=== PATIENT | male | born 1955 | race Caucasian/White ===

== ENCOUNTER 2019-04-30 14:24 | Outpatient (REF) | payer MEDICARE, SELFPAY ==
[2019-05-02 10:19] LABS: PSA, Screening 1.4 ng/mL (0.0-4.5)
== END 2019-04-30 14:44 ==
LOC: NCHCN 14:24
PROVIDERS: PCP Internal Medicine; Visit Provider Family Medicine
DX: N40.0 Benign prostatic hyperplasia without lower urinary tract symptoms (principal); Z12.5 Encounter for screening for malignant neoplasm of prostate
CPT/HCPCS: 84153

== ENCOUNTER 2019-10-09 10:21 | Outpatient (REF) | payer MEDICARE, SELFPAY ==
[2019-10-09 15:35] LABS: Calculated LDL 98 mg/dL (<100); Cholesterol 192 mg/dL (<200); HDL Cholesterol 68 mg/dL (40-60); Triglyceride 134 mg/dL (<150)
[2019-10-09 15:41] LABS: Hemoglobin A1C 5.5 % (3.8-5.6)
== END 2019-10-09 10:41 ==
LOC: NCHCN 10:21
PROVIDERS: PCP Internal Medicine; Visit Provider Family Medicine
DX: E78.5 Hyperlipidemia, unspecified (principal); Z13.1 Encounter for screening for diabetes mellitus
CPT/HCPCS: 80061; 83036

== ENCOUNTER 2021-01-03 00:33 | Outpatient (CLI) | payer MEDICARE, SELFPAY ==
--- NOTE | 2021-01-03 14:00 | DI.RAD_ITS ---
Exam(s) XR KNEE LT 3V AP,LAT,GEO EXAM: XR KNEE LT 3V AP,LAT,GEO CLINICAL HISTORY: LT KNEE PAIN, M25.562. TECHNIQUE: 2D digital imaging was performed of the left knee. Four images were obtained. AP, later al and PA tunnel views were obtained. COMPARISON: CR LEFT KNEE 3 VIEW COMPLETE from 11/17/2011 CR LEFT KNEE 3 VIEW COMPLETE from 11/17/2011 CR STRESS VIEWS UNI OR BILAT from 07/16/2013 FINDINGS: BONES: No acute fracture is present. No bony destructive lesion is seen. There is an enthesophyte at the superior patella. JOINTS: Moderate narrowing is seen in the medial femoral tibial joint. Tricompartment periarticular spurring is present. No joint effusion is seen. SOFT TISSUE: Normal. IMPRESSION: Moderate degenerative changes of the left knee. DATA REPOSITORY: RADIATION DOSE DELIVERED:
== END 2021-01-03 00:53 ==
PROVIDERS: PCP Family Medicine; Visit Provider Family Medicine
DX: M25.562 Pain in left knee (principal); M17.12 Unilateral primary osteoarthritis, left knee
CPT/HCPCS: 73562

== ENCOUNTER 2021-01-21 19:46 | Outpatient (REF) | payer MEDICARE, SELFPAY ==
[2021-01-21 20:06] LABS: Bilirubin Negative (Negative); Blood Negative (Negative); Clarity Clear (Clear); Glucose Negative (Negative); Ketones Negative (Negative); Leukocyte Esterase Negative (Negative); Nitrite Negative (Negative); Urobilinogen 0.2 EU/dL (Up TO 0.2); pH 5.5 (5-8)
== END 2021-01-21 19:47 | disposition home or self-care (01) ==
LOC: NCHCN 19:46
PROVIDERS: PCP Family Medicine; Visit Provider Family Medicine
DX: R39.9 Unspecified symptoms and signs involving the genitourinary system (principal)
CPT/HCPCS: 81003; 87086

== ENCOUNTER → 2021-06-10 08:53 | Outpatient (BNVA) | payer MEDICARE, SELFPAY | PROVIDERS: PCP Family Medicine; Referring Provider Family Medicine; Visit Provider Surgery | DX: K40.90 Unilateral inguinal hernia, without obstruction or gangrene, not specified as recurrent (principal) | CPT/HCPCS: 99203 ==

== ENCOUNTER → 2021-06-21 09:07 | Outpatient (BNVA) | payer MEDICARE, SELFPAY | PROVIDERS: PCP Family Medicine; Referring Provider Family Medicine; Visit Provider Surgery | DX: K40.90 Unilateral inguinal hernia, without obstruction or gangrene, not specified as recurrent (principal) | CPT/HCPCS: 99213 ==

== ENCOUNTER 2021-06-25 11:29 | Outpatient (REF) | payer MEDICARE, SELFPAY ==
[2021-06-25 11:49] LABS: ALT 32 U/L (16-63); AST 29 U/L (15-37); Albumin 3.8 g/dL (3.4-5.0); Alkaline Phosphatase 87 U/L (46-116); Anion Gap 4.5 mmol/L (3-11); BUN 23 mg/dL (7-18); Bilirubin, Total 0.7 mg/dL (0.2-1.0); CO2 32.5 mmol/L (21.0-32.0); CREATININE 1.2 mg/dL (0.70-1.30); Calcium 8.8 mg/dL (8.5-10.1); Chloride 104 mmol/L (98-107); Glucose 77 mg/dL (74-106); Potassium 4.7 mmol/L (3.5-5.1); Sodium 141 mmol/L (136-145); Total Protein 6.8 g/dL (6.4-8.2)
== END 2021-06-25 11:30 | disposition home or self-care (01) ==
LOC: LBN 11:29
PROVIDERS: PCP Family Medicine; Visit Provider Physician Assistant Medical
DX: U07.1 COVID-19 (principal)
CPT/HCPCS: 80053

== ENCOUNTER 2021-10-17 11:54 | Outpatient (REF) | payer MEDICARE, SELFPAY ==
[2021-10-17 16:14] LABS: TSH (W/Ref FT4) 1.07 uIU/mL (0.36-3.74); Vitamin B12 706 pg/mL (193-986)
[2021-10-17 22:38] LABS: PSA, Screening 1.4 ng/mL (<=4.5)
== END 2021-10-17 11:55 | disposition home or self-care (01) ==
LOC: NCHCN 11:54
PROVIDERS: PCP Family Medicine; Visit Provider Family Medicine
DX: R41.3 Other amnesia (principal); Z00.00 Encounter for general adult medical examination without abnormal findings
CPT/HCPCS: 84153; 82607; 84443

== ENCOUNTER 2022-03-18 11:35 | Emergency (ER) | payer MEDICARE, SELFPAY ==
[2022-03-18 11:40] VITALS: BP 114/65; PULSE 56; RESP 16; TEMP 37; O2SAT 97
--- NOTE | 2022-03-18 12:45 | DI.RAD_ITS ---
Exam(s) XR KNEE RT 3V AP,LAT,GEO EXAM: XR KNEE RT 3V AP,LAT,GEO CLINICAL HISTORY: Injury, Pain. TECHNIQUE: 2D digital imaging was performed. COMPARISON: CR XR KNEE LT 3V AP,LAT,GEO from 01/03/2021 FINDINGS: 3 views There is soft tissue swelling anteriorly, anterior to the patella and patellar ligament. There is no patellar fracture nor osseous abnormality at the anterior tibial tubercle. Some vertically orientat ed calcification is seen in the distal quadriceps tendon just above the patella consistent with chron ic tendinitis of the quadriceps. There is no evidence of acute fracture in the knee nor obvious knee joint effusion. There are mild-m oderate osteoarthritic degenerative changes in the medial compartment and milder degenerative changes in the other compartments of the knee. No osseous lesions. Bone density is normal. IMPRESSION: Anterior soft tissue swelling. No acute fractures. Some degenerative changes as described above. No joint effusion. Calcification in the distal quadriceps tendon, consistent with chronic tendinitis/tendinosis. DATA REPOSITORY: RADIATION DOSE DELIVERED:
--- NOTE | 2022-03-18 12:48 | ED.GENADUL_ITS ---
Discharge Plan Disposition Patient Disposition: Home Condition: Stable Discharge Details Clinical Impression: Right knee sprain Primary Care Provider: Claudy Ramsey ED Provider: Morena Lofton Home Meds and New Rx's Prescriptions: Continued carlitos palmetto 450 MG capsule 450 mg PO DAILY Qty: 2 turmeric root extract 538 mg capsule 538 mg PO DAILY ibuprofen 200 MG capsule 800 mg PO PRN PRN gabapentin 300 MG capsule 600 mg PO HS Chelated Zinc 50 MG tablet 50 mg PO DAILY multivitamin 1 EACH capsule 1 ea PO DAILY omega-3 fatty acids-fish oil 1 EACH capsule 2 ea PO DAILY atorvastatin [Lipitor] 20 MG tablet 20 mg PO DAILY cholecalciferol (vitamin D3) 1,000 UNITS tablet 2,000 units PO DAILY Discharge Instructions Instructions: Knee Sprain (ED) Additional Instructions: At this time x-ray shows no evidence of fracture, fluid within the knee joint or dislocation. I do suspect a sprain. Please wear the hinged knee brace as instructed for comfort. Toe-touch weightbearing advance as tolerated. If increased pain and swelling after 1 to 2 weeks please follow-up with orthopedics. Please no strenuous activity such as skiing if still having symptoms due to increased risk of reinjury or worsening injury. Rest ice compression elevation, please take Tylenol or Ibuprofen with food every 4-6 hours as needed for pain and swelling. Referrals: Nash Rollins MD [ [facility] STAFF PHYSICIAN] - Return if symptoms worsen Claudy Ramsey [Primary Care Provider] - Return if symptoms worsen Discharge Data Discharge Date/Time-TO BE ENTERED AT DEPARTURE: 03/18/22 14:07 Medical Decision Making 67-year-old male past medical history of hyperlipidemia, osteoarthritis, restless leg syndrome presents to the ER after a twisting injury while playing tennis yesterday. XR ordered, Patient returned from imaging informed by DI that the inadvertently canceled with the x-ray x-ray reordered and they will merge the accounts. X-ray shows no significant fracture or dislocation. Some trace prepatellar swelling. Patient was just charged with sprain information and RICE care. He was given a hinged knee brace he presented with crutches. I instructed him to follow-up with his PCP if no improvement in the next couple of weeks and/or Ortho. This text was generated using [employer] dictation system, please disregard any oddities of phrase or misspellings. Imaging Data Radiologic Study: Imaging: X-Ray Radiologist's impression: TECHNIQUE: Imaging protocol: Radiologic exam of the Right knee. Views: 3 views. Total images: 4 COMPARISON: No relevant prior studies available. FINDINGS: Bones/joints: There are mild degenerative changes of the knee joint, predominantly involving the medial joint compartment. No evidence of acute fracture or dislocation. Soft tissues: Soft tissues are within normal limits. Prepatellar soft tissue swelling. IMPRESSION: 1. There are mild degenerative changes of the knee joint, predominantly involving the medial joint compartment. 2. No evidence of acute fracture or dislocation. 3. Prepatellar soft tissue swelling. HPI General Mode of arrival: ambulatory . Date/Time Provider Initiated Documentation: 03/18/22 11:35 . Limitations to Documentation: no limitations . Information obtained by: patient, RN notes reviewed and old records reviewed . HPI Narrative: 67-year-old male past medical history of hyperlipidemia, osteoarthritis, restless leg syndrome presents to the ER after a twisting injury while playing tennis yesterday. He reports right knee swelling pain with weightbearing and tenderness over the night. He did take some ibuprofen which relieves the pain somewhat and is using a crutch. He has had a meniscus tear surgery on his knee previously he is unsure if it was his left or right. Related Data Home Medications Medication Instructions Recorded Confirmed gabapentin 300 mg capsule 600 mg PO HS 08/04/12 03/18/22 ibuprofen 200 mg capsule 800 mg PO PRN PRN 08/04/12 03/18/22 multivitamin 1 ea PO DAILY 08/04/12 03/18/22 zinc 50 mg tablet (Chelated Zinc) 50 mg PO DAILY 08/04/12 03/18/22 omega-3 fatty acids-fish oil 360 2 ea PO DAILY 10/24/12 03/18/22 mg-1,200 mg capsule saw palmetto 450 mg capsule 450 mg PO DAILY ##2 07/16/13 03/18/22 atorvastatin 20 mg tablet (Lipitor) 20 mg PO DAILY 04/13/15 03/18/22 cholecalciferol (vitamin D3) 25 2,000 units PO DAILY 04/13/15 03/18/22 mcg (1,000 unit) tablet turmeric root extract 538 mg 538 mg PO DAILY 06/07/21 03/18/22 capsule Allergies Allergy/AdvReac Type Severity Reaction Status Date / Time No Known Allergies Allergy Unverified 03/18/22 11:58 General Stated Complaint: Orthopedic KLEBER: 3 Review of Systems All systems reviewed & are unremarkable except as noted in HPI and below Musculoskeletal Musculoskeletal: Reports as per HPI, Reports arthralgias (Right Knee) and Reports joint swelling (Medial joint line) PFSH All Active Problems (Updated 03/18/22 @ 13:36 by Morena Lofton NP) Right knee sprain (Acute) Inguinal hernia (Acute) Medical History Achilles tendonitis Chronic cough Erectile dysfunction Generalized anxiety disorder Hemorrhoids, external Hyperlipidemia Left knee pain Lower urinary tract symptoms Osteoarthritis of fingers of both hands Restless leg syndrome Seasonal allergies Seborrheic keratoses Tinnitus Vitamin D deficiency Surgical History Arthroplasty of knee Social History Smoking/Tobacco Use Status: Never Smoking risk assessment performed?: Yes Drug use: Never Substance use type: does not use Do you feel safe at home: Yes Do you feel safe in your relationship?: Yes Exam Extrem Right lower extremity: knee Details: tenderness, swelling Location: of the infrapatellar area and other (Negative anterior posterior drawer test joint appears stable.) Left lower extremity: normal to inspection Knee images: 1. Tenderness and swelling. Course Vital Signs Vital signs: Vital Signs Temperature 37.0 C 03/18/22 11:40 Pulse 56 L 03/18/22 11:40 Respiratory Rate 16 03/18/22 11:40 Blood Pressure 114/65 03/18/22 11:40 Pulse Oximetry 97 03/18/22 11:40 Temperature 37.0 C 03/18/22 11:40 Temperature Source Temporal Artery Scan 03/18/22 11:40 Pulse 56 L 03/18/22 11:40 Respiratory Rate 16 03/18/22 11:40 Respiratory Effort 03/18/22 11:44 Blood Pressure 114/65 03/18/22 11:40 Blood Pressure Position Sitting 03/18/22 11:40 Pulse Oximetry 97 03/18/22 11:40 Oxygen Delivery Method Room Air 03/18/22 11:40 Oxygen Flow Rate 0 03/18/22 11:40 Pain Level 0 03/18/22 11:40
--- NOTE | 2022-03-18 13:25 | DI.VRAD_ITS ---
PROCEDURE INFORMATION: Exam: XR Right Knee Exam date and time: 03/18/2022 12:35 PM Age: 67 years old Clinical indication: Injury or trauma; Fall; Swelling (edema); Knee; Right TECHNIQUE: Imaging protocol: Radiologic exam of the Right knee. Views: 3 views. Total images: 4 COMPARISON: No relevant prior studies available. FINDINGS: Bones/joints: There are mild degenerative changes of the knee joint, predominantly involving the medial joint compartment. No evidence of acute fracture or dislocation. Soft tissues: Soft tissues are within normal limits. Prepatellar soft tissue swelling. IMPRESSION: 1. There are mild degenerative changes of the knee joint, predominantly involving the medial joint compartment. 2. No evidence of acute fracture or dislocation. 3. Prepatellar soft tissue swelling. Dictated and Authenticated by: Torres Silva MD. Ordering:DAMIAN Berg MD
[2022-03-18 13:26] VITALS: BP 119/74; PULSE 58; TEMP 36.8; O2SAT 94
[2022-03-18 14:06] VITALS: BP 128/79; PULSE 54; RESP 18; O2SAT 94
== END 2022-03-18 14:07 | disposition home or self-care (01) ==
PROVIDERS: Emergency Provider Registered Nurse Emergency; PCP Family Medicine
DX: S83.91XA Sprain of unspecified site of right knee, initial encounter (principal); X50.1XXA Overexertion from prolonged static or awkward postures, initial encounter; Y93.73 Activity, racquet and hand sports
CPT/HCPCS: 73562; 99283; 99282

== ENCOUNTER 2022-10-19 10:41 | Outpatient (REF) | payer MEDICARE, SELFPAY ==
[2022-10-19 17:21] LABS: Calculated LDL 86 mg/dL (<100); Cholesterol 158 mg/dL (<200); HDL Cholesterol 53 mg/dL (40-60); Triglyceride 95 mg/dL (<150)
[2022-10-20 20:13] LABS: PSA, Screening 1.8 ng/mL (<=4.5)
== END 2022-10-19 10:42 | disposition home or self-care (01) ==
LOC: NCHCN 10:41
PROVIDERS: PCP Family Medicine; Visit Provider Family Medicine
DX: E78.5 Hyperlipidemia, unspecified (principal); N40.0 Benign prostatic hyperplasia without lower urinary tract symptoms; Z12.5 Encounter for screening for malignant neoplasm of prostate; Z00.00 Encounter for general adult medical examination without abnormal findings
CPT/HCPCS: 80061; 84153

== ENCOUNTER → 2023-04-12 13:43 | Outpatient (CLI) | payer MEDICARE, SELFPAY ==
--- NOTE | 2023-04-12 15:11 | DI.RAD_ITS ---
Exam(s) XR CHEST 2V PA LATERAL EXAM: XR CHEST 2V PA LATERAL CLINICAL HISTORY: R05.3 Chronic cough TECHNIQUE: 2D digital imaging was performed. COMPARISON: CR CHEST 2 VIEWS PA,LAT from 08/04/2012 FINDINGS: HEART: Normal size. Aorta: Not dilated. PULMONARY VASCULATURE: Normal. LUNGS: Clear. No infiltrate. No visible in emphysematous changes or interstitial changes. PLEURAL SPACE: No pleural effusion or pneumothorax. BONE:Unremarkable for age. Soft tissues: Unremarkable. IMPRESSION: No acute abnormality. DATA REPOSITORY: RADIATION DOSE DELIVERED:
== END ==
PROVIDERS: PCP Family Medicine; Visit Provider Family Medicine
DX: R05.3 Chronic cough (principal)
CPT/HCPCS: 71046

== ENCOUNTER 2023-04-12 15:47 | Outpatient (REF) | payer MEDICARE, SELFPAY ==
--- NOTE | 2023-04-12 12:25 | SKI_PTH ---
PATIENT: Jimbo Dye LOC: [facility] U#:[id number] AGE/SX: 68/M ROOM: RE04/12/[address]: Claudy Ramsey : 1955 BED: DIS: 04/12/2023 SPEC #: [id number] RECD: 04/12/23 16:41 STATUS: MARY ROSA #: [id number] ROSALIO: 04/12/23 12:[address]: Claudy Ramsey DEPT: Surgical Specimen RECD BY: Marisa Santamaria Tissues: 1 - SKIN BIOPSY(SHAVE/PUNCH) Procedures: SKIN LEVEL 4 Comments: [id number]
== END 2023-04-12 15:48 | disposition home or self-care (01) ==
LOC: NCHCN 15:47
PROVIDERS: PCP Family Medicine; Visit Provider Family Medicine
DX: R05.3 Chronic cough (principal)
CPT/HCPCS: 88305

== ENCOUNTER 2023-11-09 15:46 | Outpatient (REF) | payer MEDICARE, SELFPAY ==
[2023-11-09 15:51] LABS: Hemoglobin A1C 5.6 % (<5.7)
[2023-11-12 08:57] LABS: PSA, Screening 1.6 ng/mL (<=6.5)
== END 2023-11-09 15:47 | disposition home or self-care (01) ==
LOC: NCHCN 15:46
PROVIDERS: PCP Family Medicine; Visit Provider Student in an Organized Health Care Education/Training Program
DX: Z13.1 Encounter for screening for diabetes mellitus (principal); Z12.5 Encounter for screening for malignant neoplasm of prostate
CPT/HCPCS: 84153; 83036

== ENCOUNTER 2023-11-14 00:46 | Emergency (ER) | payer MEDICARE, SELFPAY ==
[2023-11-14 00:49] VITALS: BP 177/97; PULSE 60; RESP 22; TEMP 36.6; O2SAT 96
--- NOTE | 2023-11-14 01:03 | W.ED.GENAD ---
Discharge Plan Disposition Patient Disposition: Home Condition: Good Discharge Details Clinical Impression: Sensation of fullness in left ear Primary Care Provider: Claudy Ramsey ED Provider: John Myles Home Meds and New Rx's Prescriptions: No Action ascorbate calcium (vitamin C) 1 tab PO DAILY AM fluticasone propionate [Flonase Allergy Relief] 50 mcg/actuation spray,suspension 2 spray intranasal DAILY 30 Days Qty: 16 12RF Rx Instructions: administer into each nostril saw palmetto 450 MG capsule 450 mg PO DAILY Qty: 2 turmeric root extract 538 mg capsule 538 mg PO DAILY sildenafil 100 mg tablet 100 mg PO DAILY PRN Rx Instructions: administer 30 minutes to 4 hours before activity ibuprofen 200 MG capsule 800 mg PO PRN PRN gabapentin 300 MG capsule 600 mg PO HS Chelated Zinc 50 MG tablet 50 mg PO DAILY multivitamin 1 EACH capsule 1 ea PO DAILY omega-3 fatty acids-fish oil 1 EACH capsule 2 ea PO DAILY atorvastatin [Lipitor] 20 MG tablet 20 mg PO DAILY cholecalciferol (vitamin D3) 1,000 UNITS tablet 2,000 units PO DAILY Discharge Instructions Instructions: Serous Otitis Media Additional Instructions: At this time there is a trace amount of fluid in your left ear. This is likely causing some of your hearing change. Thankfully there is no evidence of infection or obstructing wax. You have been given a 10 mg loratadine tablet. This may improve your symptoms somewhat. If you notice some mild improvement you can continue to take a 10 mg loratadine tablet every 24 hours for the next 2 to 3 days. Please follow-up closely with Dr. Patricia for recheck of your uric levels. If you notice any worsening of your symptoms, or any new symptoms such as vomiting, diarrhea, fever, chills, shortness of breath, chest pain, numbness, weakness, or fainting , please return immediately to the emergency department for reevaluation. Please follow up with your primary care provider as soon as possible for reassessment and reevaluation. As always, it was a pleasure participating in your medical care today. Referrals: Claudy Ramsey [Primary Care Provider] - HPI General Date/Time Provider Initiated Documentation: 11/14/23 01:02. HPI Narrative: This is a pleasant 68-year-old male who presents today for left ear fullness. Patient states that he has felt this for the last day or so. He noticed that has been making slightly atypical noises when he tries to pop it. He denies any significant pain, he does admit to chronic tinnitus. This is not changed. He denies fever or chills. He did apply Debrox to his ears bilaterally earlier today. He does have a flight later this morning that he is slightly concerned about. No other complaints at this time. No other modifying factors. Related Data Home Medications ?Medication ?Instructions ?Recorded ?Confirmed gabapentin 300 mg capsule 600 mg PO HS 08/04/12 11/14/23 ibuprofen 200 mg capsule 800 mg PO PRN PRN 08/04/12 11/14/23 multivitamin 1 ea PO DAILY 08/04/12 11/14/23 zinc 50 mg tablet (Chelated Zinc) 50 mg PO DAILY 08/04/12 11/14/23 omega-3 fatty acids-fish oil 360 2 ea PO DAILY 10/24/12 11/14/23 mg-1,200 mg capsule saw palmetto 450 mg capsule 450 mg PO DAILY ##2 07/16/13 11/14/23 atorvastatin 20 mg tablet (Lipitor) 20 mg PO DAILY 04/13/15 11/14/23 cholecalciferol (vitamin D3) 25 2,000 units PO DAILY 04/13/15 11/14/23 mcg (1,000 unit) tablet turmeric root extract 538 mg 538 mg PO DAILY 06/07/21 11/14/23 capsule sildenafil 100 mg tablet 100 mg PO DAILY PRN 04/17/22 11/14/23 ascorbate calcium (vitamin C) 1 tab PO DAILY AM 05/24/22 11/14/23 fluticasone propionate 50 2 spray intranasal DAILY 30 days 05/24/22 11/14/23 mcg/actuation nasal #16 grams spray,suspension (Flonase Allergy Relief) Previous Rx's ?Medication ?Instructions ?Recorded fluticasone propionate 50 2 spray intranasal DAILY 30 days 05/24/22 mcg/actuation nasal #16 grams spray,suspension (Flonase Allergy Relief) Allergies Allergy/AdvReac Type Severity Reaction Status Date / Time No Known Allergies Allergy Unverified 06/29/22 11:12 General Stated Complaint: EarProblem KLEBER: 4 Review of Systems All systems reviewed & are unremarkable except as noted in HPI and below Exam Narrative Exam Narrative: 1.Const: Well-nourished, Well-developed, appearing stated age 2.Eyes: PERRL, no conjunctival injection, and symmetrical lids. 3.ENT: Atraumatic external nose and ears. Moist MM. Neck: Symmetric, trachea midline, No thyromegaly. No cerumen bilaterally. No evidence of impaction. No significant erythema bilaterally. Minimal area of serous effusion in the left tympanic membrane, no purulence, no bulging. 4.CVS: +S1/S2, No murmurs or gallops. Peripheral pulses 2+ and equal in all extremities. Brisk capillary refill in all extremities. 5.RESP: Unlabored respiratory effort. Clear to auscultation bilaterally. No wheezes rales or rhonchi 6.GI: Soft, Nontender/Nondistended, No hepatosplenomegaly. No guarding or rebound. 7.MSK: Normocephalic/Atraumatic, Extremities w/o deformity or ttp No cyanosis or clubbing, Normal movement of all extremities 8.Skin: Warm, Dry. No rashes or lesions. 9.Neuro: patternmaker plaster and plastic II-XII grossly intact. Sensation grossly intact, no focal neurologic deficits. 10.Psych: (AAO) x3. Appropriate mood and affect Course Vital Signs Vital signs: Vital Signs Temperature 36.6 C 11/14/23 00:49 Pulse 60 11/14/23 00:49 Respiratory Rate 22 11/14/23 00:49 Blood Pressure 177/97 H 11/14/23 00:49 Pulse Oximetry 96 11/14/23 00:49 Temperature 36.6 C 11/14/23 00:49 Temperature Source Temporal Artery Scan 11/14/23 00:49 Pulse 60 11/14/23 00:49 Respiratory Rate 22 11/14/23 00:49 Respiratory Effort Normal, Non-Labored 11/14/23 00:54 Blood Pressure 177/97 H 11/14/23 00:49 Blood Pressure Position Sitting 11/14/23 00:49 Pulse Oximetry 96 11/14/23 00:49 Oxygen Delivery Method Room Air 11/14/23 00:49 Oxygen Flow Rate 0 11/14/23 00:49 Pain Level 0 11/14/23 00:54 Medical Decision Making This is a pleasant 68-year-old male who presents today for left ear fullness. Patient states that he has felt this for the last day or so. He noticed that has been making slightly atypical noises when he tries to pop it. He denies any significant pain, he does admit to chronic tinnitus. This is not changed. He denies fever or chills. He did apply Debrox to his ears bilaterally earlier today. He does have a flight later this morning that he is slightly concerned about. No other complaints at this time. No other modifying factors. Exam demonstrates well-appearing male, left ear demonstrates a small amount of serous effusion, no bulging or purulence. Right ear is unremarkable. Suspect that the small effusion is the etiology for the atypical hearing change. No indication for antibiotics at this stage as there is not an infection. Will recommend loratadine to help diminish sinus congestion syndromes. If the patient has persistent symptoms that worsen he may require antibiotics if this does develop into an infectious component. Discussed red flags for which to return. I have extensively reviewed the treatment plan and discharge instructions with the patient. I have addressed all patient concerns at this time. The patient was made aware of what symptoms to monitor for that would warrant a return to the emergency department. Discussed the plan with the patient, they demonstrate verbal understanding and agreement with our assessment and plan at this time. The documentation in this chart was dictated using [employer] dictation software. Please excuse any dictation errors. Quality:SDOH Health Related Social Needs: No Data to Display PFSH All Active Problems Sensation of fullness in left ear (Acute) Nasal congestion (Acute) Inguinal hernia (Acute) Medical History History of testicular lump Right side, epidydimal cyst Anxiety Preventative health care Osteoarthritis of finger Olecranon bursitis, left elbow Mild memory disturbance Cyst of skin Prepatellar bursitis of right knee Cellulitis of thumb, right Vitamin D deficiency Restless leg syndrome Hyperlipidemia Generalized anxiety disorder Lower urinary tract symptoms Seasonal allergies Tinnitus Erectile dysfunction Hemorrhoids, external Osteoarthritis of fingers of both hands Achilles tendonitis Left knee pain Chronic cough Seborrheic keratoses Surgical History Hx of cystoscopy 06/04/1991 History of vasectomy Arthroplasty of knee Social History Smoking/Tobacco Use Status: Never Smoking risk assessment performed?: Yes Drug use: Never Substance use type: does not use Housing: house Do you feel safe at home: Yes Do you feel safe in your relationship?: Yes
[2023-11-14] MEDS: Loratidine 10 MG TAB PO (01:18)
== END 2023-11-14 01:18 | disposition home or self-care (01) ==
LOC: ER 01:10
PROVIDERS: Emergency Provider Student in an Organized Health Care Education/Training Program; PCP Family Medicine
DX: H93.8X2 Other specified disorders of left ear (principal)
CPT/HCPCS: 99281; 99282

== ENCOUNTER 2024-01-19 14:11 | Emergency (ER) | payer MEDICARE, SELFPAY ==
[2024-01-19 14:12] VITALS: BP 150/83; PULSE 59; RESP 16; TEMP 36.6; O2SAT 93
--- NOTE | 2024-01-19 14:24 | ED.GENADUL_ITS ---
Discharge Plan Disposition Patient Disposition: Home Condition: Stable Discharge Details Clinical Impression: Upper respiratory infection, viral Primary Care Provider: Roel Chun ED Provider: Morena Lofton Home Meds and New Rx's Prescriptions: New benzonatate 100 mg capsule 100 mg PO BID-TID PRN (Reason: cough) Qty: 10 0RF Rx Instructions: Take 1 capsule up to 2-3 times daily as needed for cough Continued ascorbate calcium (vitamin C) 1 tab PO DAILY AM fluticasone propionate [Flonase Allergy Relief] 50 mcg/actuation spray,suspension 2 spray intranasal DAILY 30 Days Qty: 16 12RF Rx Instructions: administer into each nostril saw palmetto 450 MG capsule 450 mg PO DAILY Qty: 2 turmeric root extract 538 mg capsule 538 mg PO DAILY sildenafil 100 mg tablet 100 mg PO DAILY PRN Rx Instructions: administer 30 minutes to 4 hours before activity ibuprofen 200 MG capsule 800 mg PO PRN PRN gabapentin 300 MG capsule 600 mg PO HS Chelated Zinc 50 MG tablet 50 mg PO DAILY multivitamin 1 EACH capsule 1 ea PO DAILY omega-3 fatty acids-fish oil 1 EACH capsule 2 ea PO DAILY atorvastatin [Lipitor] 20 MG tablet 20 mg PO DAILY cholecalciferol (vitamin D3) 1,000 UNITS tablet 2,000 units PO DAILY Discharge Instructions Instructions: Viral Upper Respiratory Infection, Adult (DC) Additional Instructions: No evidence of pneumonia today on the x-ray. Please take the Tessalon Perles as needed for cough as directed. Try honey. Please take Tylenol or Ibuprofen with food every 4-6 hours as needed for pain and bodyaches. Increase oral fluids. Follow up with primary care provider in 3-5 days. Return to ED sooner if any worsening shortness of breath, fever, or concerns. Referrals: Roel Chun [Primary Care Provider] - 3 days Discharge Data Discharge Date/Time-TO BE ENTERED AT DEPARTURE: 01/19/24 15:12 HPI General Mode of arrival: ambulatory . Date/Time Provider Initiated Documentation: 01/19/24 14:15 . Limitations to Documentation: no limitations . Information obtained by: patient, RN notes reviewed and old records reviewed . HPI Narrative: 68-year-old male visit to the ER with 3 days of productive cough. Denies any fever reports body aches and mild shortness of breath. Does have a past medical history of high cholesterol, anxiety, restless leg syndrome. He is speaking in full sentences, no increased work of breathing noted. Vital signs are stable upon arrival. Related Data Home Medications ?Medication ?Instructions ?Recorded ?Confirmed gabapentin 300 mg capsule 600 mg PO HS 08/04/12 01/19/24 ibuprofen 200 mg capsule 800 mg PO PRN PRN 08/04/12 01/19/24 multivitamin 1 ea PO DAILY 08/04/12 01/19/24 zinc 50 mg tablet (Chelated Zinc) 50 mg PO DAILY 08/04/12 01/19/24 omega-3 fatty acids-fish oil 360 2 ea PO DAILY 10/24/12 01/19/24 mg-1,200 mg capsule saw palmetto 450 mg capsule 450 mg PO DAILY ##2 07/16/13 01/19/24 atorvastatin 20 mg tablet (Lipitor) 20 mg PO DAILY 04/13/15 01/19/24 cholecalciferol (vitamin D3) 25 2,000 units PO DAILY 04/13/15 01/19/24 mcg (1,000 unit) tablet turmeric root extract 538 mg 538 mg PO DAILY 06/07/21 01/19/24 capsule sildenafil 100 mg tablet 100 mg PO DAILY PRN 04/17/22 01/19/24 ascorbate calcium (vitamin C) 1 tab PO DAILY AM 05/24/22 01/19/24 fluticasone propionate 50 2 spray intranasal DAILY 30 days 05/24/22 01/19/24 mcg/actuation nasal #16 grams spray,suspension (Flonase Allergy Relief) benzonatate 100 mg capsule 100 mg PO BID-TID PRN cough #10 01/19/24 caps Previous Rx's ?Medication ?Instructions ?Recorded fluticasone propionate 50 2 spray intranasal DAILY 30 days 05/24/22 mcg/actuation nasal #16 grams spray,suspension (Flonase Allergy Relief) benzonatate 100 mg capsule 100 mg PO BID-TID PRN cough #10 01/19/24 caps Allergies Allergy/AdvReac Type Severity Reaction Status Date / Time No Known Allergies Allergy Verified 01/19/24 14:15 General Stated Complaint: RespSymp KLEBER: 3 Review of Systems All systems reviewed & are unremarkable except as noted in HPI and below Respiratory Respiratory: Reports change in phlegm color and Reports cough Exam Narrative Exam Narrative: Constitutional: Alert and oriented x3. Appears stated age. Normal body habitus. Head: Normocephalic, no trauma. Eyes: Pupils PERRL, Red reflex noted, EOM's intact. Eyelids symmetrical without lesions, discharge, or swelling. ENT: Bilateral TM's WNL, External ear normal to inspection, no mastoid TTP, swelling, or erythema, Nasal turbinates WNL, no nasal discharge. Normal dentition, Posterior pharynx WNL, no exudate. Chest: RRR, Normal S1, S2, distal pulses intact. Resp: Lungs clear to auscultation bilaterally, no wheezes, rales, or rhonchi. Abdomen: Soft, non-distended, Normoactive bowel sounds all 4 quads. Musculoskeletal: Normal gait, Moves all 4 extremities without difficulty. Skin: No suspicious rashes or lesions. Capillary refill less than 2 sec. Neurologic: Cranial nerves II-XII intact. Alert and oriented x 3. Motor: No deficits noted. Sensory: Intact bilaterally all 4 extremities. Hematologic/Lymphatic: No ecchymosis, no lymphadenopathy. Course Vital Signs Vital signs: Vital Signs Temperature 36.6 C 01/19/24 14:12 Pulse 59 L 01/19/24 14:12 Respiratory Rate 16 01/19/24 14:12 Blood Pressure 150/83 H 01/19/24 14:12 Pulse Oximetry 93 01/19/24 14:12 Temperature 36.6 C 01/19/24 14:12 Temperature Source Oral 01/19/24 14:12 Pulse 59 L 01/19/24 14:12 Respiratory Rate 16 01/19/24 14:12 Blood Pressure 150/83 H 01/19/24 14:12 Blood Pressure Position Sitting 01/19/24 14:12 Pulse Oximetry 93 01/19/24 14:12 Oxygen Delivery Method Room Air 01/19/24 14:12 Oxygen Flow Rate 0 01/19/24 14:12 Pain Level 0 01/19/24 14:12 Medical Decision Making Fluvid swab obtained by staff developer in triage, chest x-ray ordered. X-ray is read as negative for any infiltrate. Presumed viral URI. Will give Tessalon Perles and instruct patient to return if any worsening. COVID flu and RSV negative. Patient remained hemodynamically stable throughout the remainder of his stay. This text was generated using Nuance dictation system, please disregard any oddities of phrase or misspellings. Lab Data Lab results reviewed: Yes I reviewed the patient's lab results. Labs: Laboratory Tests Range/Units 01/19/24 14:14 COVID-19 Source Nasopharynx SARS-CoV-2 (PCR) (Negative) Negative Influenza Type A (PCR) (Negative) Negative Influenza Type B (PCR) (Negative) Negative RSV (PCR) (Negative) Negative Quality:SDOH Health Related Social Needs: No Data to Display PFSH All Active Problems (Updated 01/19/24 @ 15:06 by Morena Lofton NP) Upper respiratory infection, viral (Acute) Nasal congestion (Acute) Inguinal hernia (Acute) Medical History History of testicular lump Right side, epidydimal cyst Anxiety Preventative health care Osteoarthritis of finger Olecranon bursitis, left elbow Mild memory disturbance Cyst of skin Prepatellar bursitis of right knee Cellulitis of thumb, right Vitamin D deficiency Restless leg syndrome Hyperlipidemia Generalized anxiety disorder Lower urinary tract symptoms Seasonal allergies Tinnitus Erectile dysfunction Hemorrhoids, external Osteoarthritis of fingers of both hands Achilles tendonitis Left knee pain Chronic cough Seborrheic keratoses Surgical History Hx of cystoscopy 06/04/1991 History of vasectomy Arthroplasty of knee Social History Smoking/Tobacco Use Status: Never Smoking risk assessment performed?: Yes Alcohol Intake: current Alcohol Intake frequency: holidays/special occasions only Drug use: Never Substance use type: does not use Housing: house Do you feel safe at home: Yes Do you feel safe in your relationship?: Yes
--- NOTE | 2024-01-19 14:35 | DI.RAD_ITS ---
Exam(s) XR CHEST 2V PA LATERAL EXAM: XR CHEST 2V PA LATERAL CLINICAL HISTORY: Cough. TECHNIQUE: 2D digital imaging was performed. COMPARISON: Prior chest x-ray 04/12/2023 FINDINGS: 2 views: Heart size is normal. The mediastinum is not widened. Lungs are clear. No infiltrates nor pleural effusions. IMPRESSION: No acute pulmonary findings. DATA REPOSITORY: RADIATION DOSE DELIVERED:
[2024-01-19 14:41] VITALS: BP 150/83; PULSE 59; RESP 16; TEMP 36.6; O2SAT 93
[2024-01-19 15:00] LABS: COVID-19 PCR Negative (Negative); Influenza A PCR Negative (Negative); Influenza B PCR Negative (Negative); RSV PCR Negative (Negative)
[2024-01-19 15:02] LABS: Source Nasopharynx
[2024-01-19] MEDS: Benzonatate 100 MG CAP PO ×2 (15:08)
== END 2024-01-19 15:12 | disposition home or self-care (01) ==
PROVIDERS: Emergency Provider Registered Nurse Emergency; PCP Student in an Organized Health Care Education/Training Program
DX: J06.9 Acute upper respiratory infection, unspecified (principal); B97.89 Other viral agents as the cause of diseases classified elsewhere; E78.5 Hyperlipidemia, unspecified
CPT/HCPCS: 87637; 99283; 71046

== ENCOUNTER 2024-07-10 21:31 | Outpatient (REF) | payer MEDICARE, SELFPAY ==
[2024-07-10 22:07] LABS: COVID-19 PCR Negative (Negative); Influenza A PCR Negative (Negative); Influenza B PCR Negative (Negative); RSV PCR Negative (Negative)
[2024-07-10 22:09] LABS: Source Nasopharynx
== END 2024-07-10 21:32 | disposition home or self-care (01) ==
LOC: LBN 21:31
PROVIDERS: PCP Student in an Organized Health Care Education/Training Program; Visit Provider Physician Assistant Medical
DX: J06.9 Acute upper respiratory infection, unspecified (principal)
CPT/HCPCS: 87637; 87070

== ENCOUNTER 2024-08-20 10:00 | Outpatient (CLI) | payer MEDICARE, SELFPAY ==
--- NOTE | 2024-08-20 09:45 | DI.RAD_ITS ---
Exam(s) XR SHOULDER LT COMPLETE 2+V EXAM: XR SHOULDER LT COMPLETE 2+V CLINICAL HISTORY: LEFT SHOULDER PAIN. TECHNIQUE: 2D digital imaging was performed. Three views. COMPARISON: MR MRI, UPPER EXT, JOINT S/ CONTRA from 08/12/2024 FINDINGS: BONES: No acute fracture is present. No bony destructive lesion is seen. JOINTS: No dislocation present. Mild narrowing of the glenohumeral joint. Spurring at the glenoid. Degenerative changes are also present at the AC joint. SOFT TISSUE: Normal. IMPRESSION: No visible joint space loose bodies. [id number] degenerative changes. DATA REPOSITORY: RADIATION DOSE DELIVERED:
== END 2024-08-20 10:01 | disposition home or self-care (01) ==
LOC: DIORS 10:00
PROVIDERS: PCP Student in an Organized Health Care Education/Training Program; Referring Provider Student in an Organized Health Care Education/Training Program; Visit Provider Student in an Organized Health Care Education/Training Program
DX: M25.512 Pain in left shoulder (principal); M19.012 Primary osteoarthritis, left shoulder
CPT/HCPCS: 99214; 73030

== ENCOUNTER 2024-09-11 00:31 | Outpatient (CLI) | payer MEDICARE, SELFPAY ==
--- NOTE | 2024-09-11 14:16 | DI.RAD_ITS ---
Exam(s) RF JOINT INJ. FLUORO GUID RAD EXAM: RF JOINT INJ. FLUORO GUID RAD CLINICAL HISTORY: LEFT SHOULDER PAIN,FLUORO GUIDED INJ,M19.012,PRIMARY OA LT SHOULDER. The Patient has had persistent left shoulder pain. Noninvasive measures have been tried. To serve as both diagnostic and therapeutic, an injection under fluoroscopy was recommended. The risks of the procedure were discussed with their Orthopedic provider and the patient elected to proceed. TECHNIQUE: 2D and realtime digital imaging was performed. CONTRAST MATERIAL: Water soluble contrast was utilized. COMPARISON: No exams were available for comparison FINDINGS: The Patient was greeted in the fluoroscopy room. The correct side was identified and the consent was reviewed with the patient and was signed. The patient was properly positioned on the fluoroscopy table. The left shoulderwas then prepped and draped. The left shoulder injection starting point was i dentified by the bony landmarks and fluoroscopy. The skin and soft tissue in the tract of the injection was anesthetized with 1% Bupivacaine. A spinal needle was then inserted into the left shoulder joint at the level of the glenohumeral joint under fluoroscopic guidance. A small amount of Omnipaque solution was injected to confirm intraarticular placement. Once confirmed, the left shoulder was injected with 5cc of a solution containing 0.5% Bupivacaiine and 40 mg of Depo-Medrol. A bandaid was placed on the injection site. The patient tolerated the procedure well and left the department in good condition. IMPRESSION: Successful left shoulder injection. RADIATION DOSE DELIVERED: Yadirar=0.34 mGy
[2024-09-11] MEDS: methylPREDNISolone ACETATE 40 MG/ML VIAL IM (14:20)
[2024-09-11] MEDS: Bupivacaine 0.5% Pres-Free 10 ML VIAL IJ (14:21)
[2024-09-11] MEDS: Omnipaque 300 MG/ML 10 ML BTL IJ (14:22)
== END 2024-09-11 00:51 ==
LOC: DI 00:31
PROVIDERS: PCP Student in an Organized Health Care Education/Training Program; Visit Provider Student in an Organized Health Care Education/Training Program
DX: M19.012 Primary osteoarthritis, left shoulder (principal); M25.512 Pain in left shoulder
CPT/HCPCS: 20610; 77002; J0665; J1010

== ENCOUNTER 2024-12-10 12:20 | Outpatient (REF) | payer MEDICARE, BC, SELFPAY ==
[2024-12-10 17:29] LABS: ALT 24 U/L (16-63); AST 30 U/L (15-37); Albumin 3.5 g/dL (3.4-5.0); Alkaline Phosphatase 95 U/L (46-116); Anion Gap 11.6 mmol/L (3-11); BUN 22 mg/dL (7-18); Bilirubin, Total 0.7 mg/dL (0.2-1.0); CO2 27.4 mmol/L (21.0-32.0); Calcium 9.0 mg/dL (8.5-10.1); Calculated LDL 51 mg/dL (<100); Chloride 101 mmol/L (98-107); Cholesterol 134 mg/dL (<200); Estimated GFR 91.31 (mL/min/1.73m2); Glucose 87 mg/dL (74-106); HDL Cholesterol 48 mg/dL (>or=40); Potassium 4.5 mmol/L (3.5-5.1); Sodium 140 mmol/L (136-145); Total Protein 6.6 g/dL (6.4-8.2); Triglyceride 177 mg/dL (<150); Vitamin D 25 Total 43 ng/mL (30-100)
[2024-12-10 18:02] LABS: COMMENT (LAB VIEW ONLY) 149.74 mg/dL; Microalb ug/mg Crea 27.4 ug/mg Cr
[2024-12-11 17:38] LABS: PSA, Screening 1.4 ng/mL (<=6.5)
== END 2024-12-10 12:21 | disposition home or self-care (01) ==
LOC: NCHCN 12:20
PROVIDERS: PCP Student in an Organized Health Care Education/Training Program; Visit Provider Student in an Organized Health Care Education/Training Program
DX: R35.0 Frequency of micturition (principal); E78.5 Hyperlipidemia, unspecified; E55.9 Vitamin D deficiency, unspecified
CPT/HCPCS: 80053; 80061; 82306; 84153; 82043; 82570